=== PATIENT | female | born 1970 | race Caucasian/White ===

== ENCOUNTER 2017-10-14 16:26 | Emergency (ER) | payer OTHER, SELFPAY ==
[2017-10-14] VITALS (14 sets, daily range): BP systolic 105–133; BP diastolic 79–110; PULSE 84–191; RESP 12–22; TEMP 36.5; O2SAT 98–100; BMI 29.5
--- NOTE | 2017-10-14 16:47 | DI.RAD.S_ITS ---
PROCEDURE: XR CHEST 1V INDICATIONS: SOB< new onset/new discovered Afib TECHNIQUE: One view of the chest was acquired. COMPARISON: None. FINDINGS: Surgical changes and devices: None. Lungs and pleura: No pleural effusions or pneumothorax. Lungs are clear. Bilaterally symmetric nipple shadows Mediastinum: Mediastinal contours appear normal. Heart size is normal. Bones and chest wall: No suspicious bony lesions. Overlying soft tissues appear unremarkable. IMPRESSION: No acute disease. Dictated by: Genaro Szymanski M.D. on 10/14/2017 at 17:14 Approved by: Genaro Szymanski M.D. on 10/14/2017 at 17:16
[2017-10-14 16:57] LABS: Add Manual Diff / Slide Review NO; Basophils Percent Auto 0.4 % (0-2); Eosinophils Percent Auto 1.7 % (2-4); Hematocrit 42.7 % (36-46); Hemoglobin 14.6 g/dL (12.0-16.0); Lymphocytes Percent Auto 22.4 % (25-40); Mean Corpuscular HGB Conc 34.2 % (30-36); Mean Corpuscular Hemoglobin 29.8 PG (26-34); Monocytes Percent Auto 9.4 % (3-14); Neutrophils Absolute Auto 6600 /uL (3000-5900); Neutrophils Percent Auto 66.1 % (50-75); Platelet Count 262 X10^3/uL (150-400); Red Blood Cell Count 4.91 X10^6/uL (4.0-5.2); Red Cell Distribution Width 13.3 % (11.6-14.8)
[2017-10-14] MEDS: dilTIAZem 25 MG/5 ML SDV 10 MG IV (17:05)
[2017-10-14 17:08] LABS: BUN Creatinine Ratio 25.7 (6-22); Blood Urea Nitrogen 18 mg/dL (7-17); Calcium 9.2 mg/dL (8.4-10.2); Carbon Dioxide 26 mmol/L (22-32); Chloride 106 mmol/L (98-107); Creatine Kinase 41 U/L (30-135); Estimated Glomerular Filt Rate > 60.0 mL/min (>60); Glucose 100 mg/dL (70-100); HEMOLYSIS < 15 (0-50); Magnesium 2.1 mg/dL (1.6-2.3); Potassium 3.7 mmol/L (3.4-5.1); Sodium 144 mmol/L (137-145)
[2017-10-14] MEDS: SODIUM CHLORIDE 0.9% 1,000 ML 150 ML IV (17:11)
--- NOTE | 2017-10-14 17:14 | ED.ARRPALP ---
HPI - Arrhythmia/Palpitations General Chief Complaint: Arrhythmia/Palpitations Stated Complaint: states heart beat is irregular Time Seen by Provider: 10/14/17 16:47 Source: patient Mode of arrival: ambulatory Limitations: no limitations History of Present Illness HPI narrative: Patient presents to the ER with palpitations since 1145. She denies chest pain or dizziness, weakness or lightheadedness. She is not short of breath. She denies any history of the same. She is under tremendous stress at home due to her being evaluated for liver transplant. She admittedly is not sleeping consuming more caffeine than normal. MD complaint: rapid heart beat, heart racing, skipped beats and palpitations Related Data Previous Rx's Medication Instructions Recorded ondansetron HCl 4 - 8 mg PO Q8HP #20 01/19/12 apixaban [Eliquis] 5 mg PO BID 21 Days #42 tab 10/14/17 lorazepam [Ativan] 1 mg PO Q8H PRN #7 tab 10/15/17 Allergies Allergy/AdvReac Type Severity Reaction Status Date / Time No Known Drug Allergies Allergy Verified 10/14/17 23:10 Review of Systems Review of Systems All systems reviewed & are unremarkable except as noted in HPI and below Constitutional Denies chills, Denies fever(s), Denies lethargy and Denies weakness Eyes Denies change in vision, Denies eye discharge, Denies irritation and Denies loss of vision ENT Ears, Nose, Mouth, and Throat: Denies change in voice, Denies neck pain and Denies sore throat Cardiovascular Denies chest pain, Reports irregular heart rhythm, Denies lightheadedness, Denies palpitations, Denies dyspnea, Denies dyspnea on exertion and Denies orthopnea Respiratory Denies cough, Denies dyspnea, Denies dyspnea on exertion and Denies wheezing Gastrointestinal Gastrointestinal: Denies abdominal pain, Denies change in bowel habits, Denies diarrhea, Denies nausea and Denies vomiting Genitourinary Denies hematuria, Denies flank pain, Denies urinary incontinence and Denies urinary urgency Musculoskeletal Denies neck pain Integumentary/Breasts Denies pruritus, Denies erythema, Denies rash and Denies wounds Neurologic Denies confusion, Denies loss of vision and Denies weakness Psychiatric Denies anxiety, Denies confusion, Denies depression, Denies homicidal ideation and Denies suicidal ideation Endocrine Denies palpitations Hematologic/Lymphatic Denies easy bruising Allergic/Immunologic Denies wheezing PFSH Social History Smoking Status: Never smoker Exam Narrative Exam Narrative: Pleasant 47-year-old female in no obvious distress Initial Vital Signs Initial Vital Signs: Vital Signs Temperature 97.7 F 10/14/17 16:32 Pulse Rate 84 10/14/17 16:32 Respiratory Rate 16 10/14/17 16:32 Blood Pressure 133/90 H 10/14/17 16:32 Pulse Oximetry 100 10/14/17 16:32 Const General: cooperative and well developed Nutritional Appearance: well nourished Orientation: alert, awake, oriented x3 and not confused HENMT Head: normocephalic and atraumatic Ears: external ears normal and TM's normal bilaterally Nose: external nose normal and No nasal discharge Face and sinus: sinuses nontender, face symmetric, no sinus tenderness and No dry mucous membranes Mouth: oral mucosae normal and moist mucous membranes Teeth and gingiva: dentition normal Throat: tonsils normal and uvula midline Neck Neck: normal visual inspection, trachea midline, No lymphadenopathy, No midline deformity and No JVD Lymphatic: No lymphedema Resp Effort & Inspection: normal respiratory effort, able to speak in complete sentences, no respiratory distress and no use of accessory muscles Auscultation: clear to auscultation bilaterally, no rales, no rhonchi and no wheezes Cardio Rate: tachycardic Rhythm: abnormal rhythm Heart Sounds: no click, no gallops, no murmurs and no rubs Pulses: normal peripheral pulses GI Inspection: non-distended Palpation: soft, no hepatosplenomegaly, No guarding, No pulsatile mass and No tender Auscultation: normal bowel sounds Back/Spine/Pelvis Back: No CVA tenderness Cervical Spine: cervical ROM normal and No pain with cervical ROM Thoracic/Lumbar Spine: thoracic and lumbar spine normal to inspection Neuro General: alert, oriented x3, gait normal and no focal motor deficits Speech: speech normal Procedures Procedural Sedation Indication: cardioversion ASA Class: I Mallampati Airway Classification: Class I Time of Last PO Intake: 12:16 Preparation: cardiac catheterization technician applied, pulse oximeter, capnometry used, supplemental O2 applied, suction/airway equipment at bedside and IV secured IV Propofol dose (mg): 70 Time of Sedation (Min): 10 ED Sedation Level: Moderate (Concious) Patient Tolerated Procedure: Well Complications: none Additional Comments: Electrical Cardioversion: Indication: [] A time-out was completed verifying correct patient, procedure and site. Informed consent was obtained. The patient was judged to be a satisfactory for the procedure. An intravenous access was established. Monitoring equipment was set-up. The resuscitative cart was nearby. Anesthesia: The patient was given an intravenous dose of [propofol 70 mg IVP] After satisfactory anesthesia was achieved, the procedure was performed. The paddles were placed in the standard position. Synchronized, direct current electrical cardioversion was performed with [150joules]. The patient tolerated the procedure well. There were no complications. Post Procedure: Successful cardioversion [was achieved.] Post procedure cardiac monitoring demonstrated [normal sinus rhythm]. Course Orders Ordered: Discontinued Medications Diltiazem HCl (Cardizem) 10 mg IV NOW ONE Stop: 10/14/17 17:14 Last Admin: 10/14/17 17:05 Dose: 10 mg Enoxaparin Sodium (Lovenox) 40 mg SUBCUT NOW ONE Stop: 10/14/17 18:20 Last Admin: 10/14/17 18:05 Dose: 40 mg Sodium Chloride (Normal Saline 0.9%) 1,000 mls @ 150 mls/hr IV CONT PK Last Infusion: 10/14/17 19:03 Dose: 150 mls/hr Admin: 10/14/17 17:11 Dose: 150 mls/hr Propofol (Diprivan) 70 mg IV NOW ONE Stop: 10/14/17 17:56 Last Admin: 10/14/17 17:55 Dose: 70 mg Vital Signs - 8 hr 10/14/17 16:32 10/14/17 17:00 10/14/17 17:05 Temperature 97.7 F Pulse Rate 84 185 H 191 H Respiratory Rate 16 20 Blood Pressure 133/90 H 126/101 H Blood Pressure [Left Arm] 126/101 H Pulse Oximetry 100 100 10/14/17 17:10 10/14/17 17:30 10/14/17 17:45 Temperature Pulse Rate 128 H 143 H 133 H Respiratory Rate 20 20 22 Blood Pressure Blood Pressure [Left Arm] 122/83 H 123/88 H 131/100 H Pulse Oximetry 100 100 100 10/14/17 17:52 10/14/17 17:55 10/14/17 17:57 Temperature Pulse Rate 145 H 138 H 95 H Respiratory Rate 18 18 18 Blood Pressure Blood Pressure [Left Arm] 128/110 H 119/81 H 105/79 Pulse Oximetry 98 100 100 10/14/17 18:00 10/14/17 18:05 Temperature Pulse Rate 93 H 96 H Respiratory Rate 18 18 Blood Pressure Blood Pressure [Left Arm] 112/79 113/90 H Pulse Oximetry 100 100 MDM - Arrhythmia/Palpitations Differential Diagnosis Differential diagnosis: Likely palpitations, anxiety, sinus tachycardia, artial fibrillation, artial flutter, ventricular premature beats, supraventricular tachycardia and ventricular tachycardia Medical Records Attestation: I reviewed the patient's medical records. Lab Data Attestation: I reviewed the patient's lab results. Result diagrams: 10/14/17 16:50 10/14/17 16:50 Lab Results 10/14/17 10/14/17 10/14/17 Range/Units 16:50 16:50 16:50 WBC 10.0 (4.5-11.0) X10^3/uL RBC 4.91 (4.0-5.2) X10^6/uL Hgb 14.6 (12.0-16.0) g/dL Hct 42.7 (36-46) % MCV 87.0 (80-100) fL MCH 29.8 (26-34) PG MCHC 34.2 (30-36) % RDW 13.3 (11.6-14.8) % Plt Count 262 (150-400) X10^3/uL Neut % (Auto) 66.1 (50-75) % Lymph % (Auto) 22.4 L (25-40) % Patrick % (Auto) 9.4 (3-14) % Eos % (Auto) 1.7 L (2-4) % Baso % (Auto) 0.4 (0-2) % Neut # (Auto) 6600 H (2438-9340) /uL Sodium 144 (137-145) mmol/L Potassium 3.7 (3.4-5.1) mmol/L Chloride 106 (98-107) mmol/L Carbon Dioxide 26 (22-32) mmol/L BUN 18 H (7-17) mg/dL Creatinine 0.70 (0.52-1.04) mg/dL Estimated GFR > 60.0 (>60) mL/min BUN/Creatinine Ratio 25.7 H (6-22) Glucose 100 (70-100) mg/dL Calcium 9.2 (8.4-10.2) mg/dL Magnesium 2.1 (1.6-2.3) mg/dL Total Creatine Kinase 41 (30-135) U/L Troponin I < 0.012 (0.01-0.034) ng/mL TSH 0.75 (0.47-4.68) uIU/mL MDM Narrative Medical decision making narrative: Patient has new onset rapid AFib which started this morning. She is very certain her symptoms have not persisted for more than 24 hr. She is a perfect candidate for electrocardioversion. While sedated she was given Lovenox 40 mg subcu and I have written a prescription for Eliquis given her increased risk of clot given the cardiac stenting due to cardioversion Discharge Plan Departure Patient Disposition: Home, Self-Care Clinical Impression: Atrial fibrillation with rapid ventricular response Discharge Date/Time: 10/14/17 18:45 Interventions: ED Discharge Assessment Last Done: 10/14/17 19:08 Instructions: DI for Atrial Fibrillation Activity Restrictions/Additional Instructions: *You have been diagnosed with [ new onset rapid atrial fibrillation ] *What to do: *Take medications as directed *Follow up with your primary care provider in 2-3 days [and follow up with ortho, urology etc] *Return to ER if you should have any new, worsening or concerning symptoms Prescriptions: New apixaban [Eliquis] 5 mg tablet 5 mg PO BID 21 Days Qty: 42 RF: 0 No Action ondansetron HCl 4 MG tablet 4 - 8 mg PO Q8HP Qty: 20 RF: 0 lorazepam [Ativan] 1 mg tablet 1 mg PO Q8H PRN (Reason: anxiety) Qty: 7 RF: 0
[2017-10-14 17:27] LABS: Troponin I < 0.012 ng/mL (0.01-0.034)
[2017-10-14 17:39] LABS: Thyroid Stimulating Hormone 0.75 uIU/mL (0.47-4.68)
[2017-10-14] MEDS: PROPOFOL 200 MG/20 ML VIAL 70 MG IV (17:55)
[2017-10-14] MEDS: ENOXAPARIN 40 MG/0.4 ML SYRINGE SUBCUT (18:05)
== END 2017-10-14 18:45 | disposition home or self-care (01) ==
PROVIDERS: Emergency Provider Emergency Medicine
DX: I48.91 Unspecified atrial fibrillation (principal)
CPT/HCPCS: 36591; 71045; 80048; 82550; 82553; 83735; 84443; 84484; 85025; 92960; 93005; 93041; 94770; 96361; 96372; 96374; 99152; 99285; J1650; J2704

== ENCOUNTER 2017-10-14 22:45 | Emergency (ER) | payer OTHER, SELFPAY ==
[2017-10-14 22:56] VITALS: BP 130/72; PULSE 100; RESP 12; TEMP 36.8; O2SAT 100; BMI 29.5
--- NOTE | 2017-10-14 22:58 | ED_ITS ---
HPI - General Adult General Chief complaint: Arrhythmia/Palpitations Stated complaint: weird sensations,not sure if she is freaking out Time Seen by Provider: 10/14/17 22:46 Source: patient Mode of arrival: ambulatory Limitations: no limitations History of Present Illness HPI narrative: 47-year-old female who was seen earlier today in this emergency department and diagnosed with atrial fibrillation and cardioverted. Patient states that she left the emergency department feeling fine. She states that she went home was going about her daily activities was putting her kids to bed when she started to feel like her right arm was tingling and she started to feel palpitations and then became anxious about these symptoms. She came into the emergency department for further evaluation. Related Data Previous Rx's Medication Instructions Recorded ondansetron HCl 4 - 8 mg PO Q8HP #20 01/19/12 apixaban [Eliquis] 5 mg PO BID 21 Days #42 tab 10/14/17 lorazepam [Ativan] 1 mg PO Q8H PRN #7 tab 10/15/17 Allergies Allergy/AdvReac Type Severity Reaction Status Date / Time No Known Drug Allergies Allergy Verified 10/14/17 23:10 Review of Systems Constitutional Denies chills, Denies fever(s), Denies lethargy and Denies weakness ENT Ears, Nose, Mouth, and Throat: Denies vertigo and Denies dizziness Cardiovascular Denies chest pain, Denies syncope, Reports palpitations and Denies dyspnea Respiratory Denies cough and Denies dyspnea Gastrointestinal Gastrointestinal: Denies diarrhea, Denies nausea and Denies vomiting Musculoskeletal Reports tingling (Right arm) Integumentary/Breasts Denies pruritus, Denies erythema, Denies rash and Denies wounds Neurologic Denies confusion, Denies vertigo, Denies dizziness, Denies syncope, Reports tingling (Right arm) and Denies weakness Psychiatric Reports anxiety and Denies confusion Endocrine Reports palpitations Hematologic/Lymphatic Denies easy bruising [facility] Social History Smoking Status: Never smoker Exam Initial Vital Signs Initial Vital Signs: Vital Signs Temperature 98.2 F 10/14/17 22:56 Pulse Rate 100 H 10/14/17 22:56 Respiratory Rate 12 10/14/17 22:56 Blood Pressure 130/72 H 10/14/17 22:56 Pulse Oximetry 100 10/14/17 22:56 Const General: cooperative, healthy appearing, well developed, No acute distress and anxious Nutritional Appearance: well nourished Orientation: alert, awake, oriented x3 and not confused Resp Effort & Inspection: normal respiratory effort, able to speak in complete sentences, no respiratory distress and no use of accessory muscles Auscultation: clear to auscultation bilaterally, no rales, no rhonchi and no wheezes Cardio Rate: tachycardic Rhythm: regular rhythm Heart Sounds: no click, no gallops, no murmurs and no rubs Pulses: normal peripheral pulses Skin General: no rashes or lesions noted, No jaundice and No petechiae Neuro General: alert, oriented x3, gait normal and no focal motor deficits Speech: speech normal Extrem General: capillary refill normal Course Orders Ordered: ED Orders 10/14/17 22:48 EKG-12 Lead Stat 10/14/17 23:07 Basic Metabolic Panel Stat Complete Blood Count AUTO DIFF Stat Partial Thromboplastin Time Stat Prothrombin Time INR Stat Discontinued Medications Lorazepam (Ativan) 1 mg PO NOW ONE Stop: 10/14/17 22:59 Last Admin: 10/14/17 23:05 Dose: 1 mg Vital Signs - 8 hr 10/14/17 22:56 10/15/17 00:08 Temperature 98.2 F Pulse Rate 100 H 79 Respiratory Rate 12 11 L Blood Pressure 130/72 H Blood Pressure [Right Arm] 118/64 Pulse Oximetry 100 100 Medical Decision Making MDM Narrative Medical decision making narrative: Patient arrived to the emergency department in sinus rhythm. I considered acute CVA, mi, anxiety, electrolyte disturbance, and other conditions that may be causing her symptoms. She was given oral Ativan afterwards she reported a great improvement in all of her symptoms. We had a long discussion regarding what brought her in. Will hold on further workup for now. She does have prescriptions from her prior ER visit today. She was instructed she needed to fill those prescriptions. Will give her prescription for Ativan. I suspect that her symptoms were the result of anxiety. She does state that she has been anxious recently regarding her 's health. She was given return precautions. She expressed understanding and agreement with plan. was at bedside for the discussion Lab Data Lab results reviewed: Yes I reviewed the patient's lab results. Result diagrams: 10/14/17 23:07 10/14/17 23:07 Lab Results 10/14/17 10/14/17 10/14/17 Range/Units 23:07 23:07 23:07 WBC 10.5 (4.5-11.0) X10^3/uL RBC 4.69 (4.0-5.2) X10^6/uL Hgb 13.8 (12.0-16.0) g/dL Hct 40.7 (36-46) % MCV 86.7 (80-100) fL MCH 29.4 (26-34) PG MCHC 34.0 (30-36) % RDW 13.6 (11.6-14.8) % Plt Count 249 (150-400) X10^3/uL Neut % (Auto) 64.7 (50-75) % Lymph % (Auto) 24.0 L (25-40) % Millard % (Auto) 9.6 (3-14) % Eos % (Auto) 1.5 L (2-4) % Baso % (Auto) 0.2 (0-2) % Neut # (Auto) 6800 H (2662-5592) /uL PT 11.0 (10.1-12.7) SECONDS INR 1.0 (0.9-1.3) APTT 35 (26.4-36.2) SECONDS Sodium 141 (137-145) mmol/L Potassium 3.7 (3.4-5.1) mmol/L Chloride 107 (98-107) mmol/L Carbon Dioxide 21 L (22-32) mmol/L BUN 16 (7-17) mg/dL Creatinine 0.70 (0.52-1.04) mg/dL Estimated GFR > 60.0 (>60) mL/min BUN/Creatinine Ratio 22.9 H (6-22) Glucose 101 H (70-100) mg/dL Calcium 8.9 (8.4-10.2) mg/dL ECG Data Attestation: I personally reviewed and interpreted this ECG as follows: Prior ECG tracings: not available for review Interpretation: Time 2258 hr Sinus rhythm Ventricular rate at 80 Normal axis Normal intervals Normal QRS No ST T wave changes Discharge Plan Departure Patient Disposition: Home, Self-Care Clinical Impression: Palpitations, Anxiety Instructions: DI for Anxiety -- Adult, DI for Palpitations Activity Restrictions/Additional Instructions: Recommend that you continue all of your medications at your prescribed earlier today. Call your primary care doctor for a follow-up. Return to the emergency department for any new or worsening symptoms like we discussed. Prescriptions: New lorazepam [Ativan] 1 mg tablet 1 mg PO Q8H PRN (Reason: anxiety) Qty: 7 RF: 0 No Action ondansetron HCl 4 MG tablet 4 - 8 mg PO Q8HP Qty: 20 RF: 0 apixaban [Eliquis] 5 mg tablet 5 mg PO BID 21 Days Qty: 42 RF: 0
[2017-10-14] MEDS: LORazepam 1 MG TABLET PO (23:05)
--- NOTE | 2017-10-14 23:06 | PC.NURSE ---
Attempted to place PIV in L AC. Unsuccessful. Was able to obtain blood specimens. Second RN to attempt placement of PIV.
--- NOTE | 2017-10-14 23:12 | PC.NURSE ---
Addendum entered by Ariana Hardin R.N. 10/14/17 23:13: Numbness and tinging in R arm and R side of jaw. Dr Lux has assessed pt. Original Note: Numbness and tingling in arms and jaw.
[2017-10-14 23:18] LABS: Add Manual Diff / Slide Review NO; Basophils Percent Auto 0.2 % (0-2); Eosinophils Percent Auto 1.5 % (2-4); Hematocrit 40.7 % (36-46); Hemoglobin 13.8 g/dL (12.0-16.0); Mean Corpuscular Hemoglobin 29.4 PG (26-34); Mean Corpuscular Volume 86.7 fL (80-100); Monocytes Percent Auto 9.6 % (3-14); Neutrophils Absolute Auto 6800 /uL (3000-5900); Neutrophils Percent Auto 64.7 % (50-75); Platelet Count 249 X10^3/uL (150-400); Red Blood Cell Count 4.69 X10^6/uL (4.0-5.2); Red Cell Distribution Width 13.6 % (11.6-14.8); White Blood Cell Count 10.5 X10^3/uL (4.5-11.0)
[2017-10-14 23:21] LABS: PTT Partial Thromboplastin Tim 35 SECONDS (26.4-36.2)
[2017-10-14 23:29] LABS: BUN Creatinine Ratio 22.9 (6-22); Blood Urea Nitrogen 16 mg/dL (7-17); Calcium 8.9 mg/dL (8.4-10.2); Carbon Dioxide 21 mmol/L (22-32); Chloride 107 mmol/L (98-107); Estimated Glomerular Filt Rate > 60.0 mL/min (>60); Glucose 101 mg/dL (70-100); HEMOLYSIS 16 (0-50); Potassium 3.7 mmol/L (3.4-5.1); Sodium 141 mmol/L (137-145)
[2017-10-15 00:08] VITALS: BP 118/64; PULSE 79; RESP 11; O2SAT 100
== END 2017-10-15 00:29 | disposition home or self-care (01) ==
PROVIDERS: Emergency Provider Emergency Medicine
DX: R00.2 Palpitations (principal); F41.9 Anxiety disorder, unspecified
CPT/HCPCS: 80048; 85025; 85610; 85730; 93005; 99283; 99284; 99291

== ENCOUNTER 2017-12-25 20:24 | Emergency (ER) | payer OTHER, SELFPAY ==
[2017-12-25 20:34] VITALS: BP 143/85; PULSE 100; RESP 16; O2SAT 100; BMI 30.4
--- NOTE | 2017-12-25 20:52 | DI.RAD.S_ITS ---
PROCEDURE: XR CHEST 1V INDICATIONS: chest pain TECHNIQUE: One view of the chest was acquired. COMPARISON: [facility], CR, XR CHEST 1V, 10/14/2017, 16:53. FINDINGS: Surgical changes and devices: None. Lungs and pleura: No pleural effusions or pneumothorax. Lungs are clear. Mediastinum: Mediastinal contours appear normal. Heart size is normal. Bones and chest wall: No suspicious bony lesions. Overlying soft tissues appear unremarkable. IMPRESSION: No acute cardiopulmonary disease. Dictated by: Nehemiah Juarez M.D. on 12/25/2017 at 21:09 Approved by: Nehemiah Juarez M.D. on 12/25/2017 at 21:10
[2017-12-25 20:59] LABS: Add Manual Diff / Slide Review NO; Basophils Percent Auto 0.2 % (0-2); Eosinophils Percent Auto 2.5 % (2-4); Lymphocytes Percent Auto 22.7 % (25-40); Mean Corpuscular HGB Conc 33.4 % (30-36); Mean Corpuscular Hemoglobin 29.5 PG (26-34); Mean Corpuscular Volume 88.1 fL (80-100); Monocytes Percent Auto 7.3 % (3-14); Neutrophils Absolute Auto 7000 /uL (3000-5900); Neutrophils Percent Auto 67.3 % (50-75); Platelet Count 280 X10^3/uL (150-400); Red Blood Cell Count 4.77 X10^6/uL (4.0-5.2); Red Cell Distribution Width 13.7 % (11.6-14.8); White Blood Cell Count 10.4 X10^3/uL (4.5-11.0)
[2017-12-25] MEDS: SODIUM CHLORIDE 0.9% 1,000 ML 150 ML IV (20:59)
[2017-12-25] MEDS: ASPIRIN 81 MG TAB 324 MG PO (20:59)
[2017-12-25 21:03] LABS: Alanine Aminotransferase 26 IU/L (9-52); Albumin 4.4 g/dL (3.5-5.0); Albumin Globulin Ratio 1.3 (1.0-2.8); Alkaline Phosphatase 60 U/L (38-126); Aspartate Aminotransferase 28 IU/L (14-36); Bilirubin Total 0.3 mg/dL (0.2-1.3); Blood Urea Nitrogen 16 mg/dL (7-17); Calcium 9.2 mg/dL (8.4-10.2); Carbon Dioxide 27 mmol/L (22-32); Chloride 104 mmol/L (98-107); Creatine Kinase 33 U/L (30-135); Estimated Glomerular Filt Rate > 60.0 mL/min (>60); Globulin 3.3 g/dL (1.7-4.1); Glucose 101 mg/dL (70-100); HEMOLYSIS < 15 (0-50); Lipase 203 U/L (23-300); Potassium 3.8 mmol/L (3.4-5.1); Sodium 143 mmol/L (137-145); Total Protein 7.7 g/dL (6.3-8.2)
[2017-12-25 21:16] LABS: Troponin I < 0.012 ng/mL (0.01-0.034)
[2017-12-25 22:00] VITALS: BP 142/89; PULSE 80; RESP 14; O2SAT 100
[2017-12-25 22:55] VITALS: BP 122/63; PULSE 88; RESP 11; O2SAT 100
[2017-12-26 00:16] LABS: Troponin I < 0.012 ng/mL (0.01-0.034)
--- NOTE | 2017-12-26 00:19 | ED_ITS ---
HPI - Chest Pain General Chief Complaint: Chest Pain Stated Complaint: CHEST PAIN Time Seen by Provider: 12/25/17 20:26 Source: patient Mode of arrival: ambulatory Limitations: no limitations History of Present Illness HPI narrative: 47-year-old female presents with a chief complaint of sharp and stabbing anterior chest pain that started about 2-3 hours prior to her arrival. She was walking when her pain started but she denies any provocation, palliation or radiation of her discomfort. She denies associated symptoms such as dizziness, weakness or lightheadedness. Her pain is worse with a big deep breath. She denies any cough nor fever or chills. She has had no nausea or vomiting. 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 She had been on anticoagulation for 1 month and had a normal echocardiogram. MD complaint: chest pain Duration: constant Pain location: left chest Severity: mild Quality: sharp Pain radiation: none Relieving factors: nothing Exacerbating factors: nothing Treatments prior to arrival chest pain: none Related Data Previous Rx's Medication Instructions Recorded ondansetron HCl 4 - 8 mg PO Q8HP #20 01/19/12 lorazepam [Ativan] 1 mg PO Q8H PRN #7 tab 10/15/17 Allergies Allergy/AdvReac Type Severity Reaction Status Date / Time No Known Drug Allergies Allergy Verified 10/14/17 23:10 Review of Systems Review of Systems All systems reviewed & are unremarkable except as noted in HPI and below Constitutional Denies chills, Denies fever(s), Denies lethargy and Denies weakness Eyes Denies change in vision, Denies eye discharge, Denies irritation and Denies loss of vision ENT Ears, Nose, Mouth, and Throat: Denies change in voice, Denies neck pain and Denies sore throat Cardiovascular Reports chest pain, Denies irregular heart rhythm, Denies lightheadedness, Denies palpitations, Denies dyspnea, Denies dyspnea on exertion and Denies orthopnea Respiratory Denies cough, Denies dyspnea, Denies dyspnea on exertion and Denies wheezing Gastrointestinal Gastrointestinal: Denies abdominal pain, Denies change in bowel habits, Denies diarrhea, Denies nausea and Denies vomiting Genitourinary Denies hematuria, Denies flank pain, Denies urinary incontinence and Denies urinary urgency Musculoskeletal Denies neck pain Integumentary/Breasts Denies pruritus, Denies erythema, Denies rash and Denies wounds Neurologic Denies confusion, Denies loss of vision and Denies weakness Psychiatric Denies anxiety, Denies confusion, Denies depression, Denies homicidal ideation and Denies suicidal ideation Endocrine Denies palpitations Hematologic/Lymphatic Denies easy bruising Allergic/Immunologic Denies wheezing COUNT INCLUDES THE [facility] Social History Smoking Status: Never smoker Exam Initial Vital Signs Initial Vital Signs: Vital Signs Pulse Rate 100 H 12/25/17 20:34 Respiratory Rate 16 12/25/17 20:34 Blood Pressure 143/85 H 12/25/17 20:34 Pulse Oximetry 100 12/25/17 20:34 Const General: cooperative and well developed Nutritional Appearance: well nourished Orientation: alert, awake, oriented x3 and not confused HENMT Head: normocephalic and atraumatic Ears: external ears normal and TM's normal bilaterally Nose: external nose normal and No nasal discharge Face and sinus: sinuses nontender, face symmetric, no sinus tenderness and No dry mucous membranes Mouth: oral mucosae normal and moist mucous membranes Teeth and gingiva: dentition normal Throat: tonsils normal and uvula midline Eyes General: appearance normal, both eyes and all related structures Eyelids: eyelids normal Conjunctivae: conjunctivae normal Sclera: sclerae normal Pupils: PERRL EOM: EOM intact bilaterally Neck Neck: normal visual inspection, trachea midline, No lymphadenopathy, No midline deformity and No JVD Lymphatic: No lymphedema Chest Chest: localized rib tenderness with anteroposterior compression Resp Effort & Inspection: normal respiratory effort, able to speak in complete sentences, no respiratory distress and no use of accessory muscles Auscultation: clear to auscultation bilaterally, no rales, no rhonchi and no wheezes Cardio Rate: regular rate Rhythm: regular rhythm Heart Sounds: no click, no gallops, no murmurs and no rubs Pulses: normal peripheral pulses GI Inspection: non-distended Palpation: soft, no hepatosplenomegaly, No guarding, No pulsatile mass and No tender Auscultation: normal bowel sounds Back/Spine/Pelvis Back: No CVA tenderness Cervical Spine: cervical ROM normal and No pain with cervical ROM Thoracic/Lumbar Spine: thoracic and lumbar spine normal to inspection Skin General: no rashes or lesions noted, No jaundice and No petechiae Neuro General: alert, oriented x3, gait normal and no focal motor deficits Speech: speech normal Extrem General: full ROM, no clubbing, cyanosis or edema, no pedal edema and no calf tenderness Psych Appearance: well kempt Mental Status: mental status grossly normal Attitude: cooperative Thought Content: normal and suicidality Judgment: judgment good Course Orders Ordered: Discontinued Medications Aspirin (Aspirin Chew) 324 mg PO NOW ONE Stop: 12/25/17 20:53 Last Admin: 12/25/17 20:59 Dose: 324 mg Sodium Chloride (Normal Saline 0.9%) 1,000 mls @ 150 mls/hr IV CONT PK Last Infusion: 12/26/17 01:17 Dose: 0 mls/hr Admin: 12/25/17 20:59 Dose: 150 mls/hr Vital Signs - 8 hr 12/25/17 20:34 12/25/17 22:00 12/25/17 22:55 Pulse Rate 100 H 80 88 Respiratory Rate 16 14 11 L Blood Pressure 143/85 H Blood Pressure [Right Arm] 142/89 H 122/63 H Pulse Oximetry 100 100 100 MDM - Chest Pain Lab Data Result diagrams: 12/25/17 20:40 12/25/17 20:40 Lab Results 12/25/17 12/25/17 12/25/17 Range/Units 20:40 20:40 23:43 WBC 10.4 (4.5-11.0) X10^3/uL RBC 4.77 (4.0-5.2) X10^6/uL Hgb 14.0 (12.0-16.0) g/dL Hct 42.0 (36-46) % MCV 88.1 (80-100) fL MCH 29.5 (26-34) PG MCHC 33.4 (30-36) % RDW 13.7 (11.6-14.8) % Plt Count 280 (150-400) X10^3/uL Neut % (Auto) 67.3 (50-75) % Lymph % (Auto) 22.7 L (25-40) % [place] % (Auto) 7.3 (3-14) % Eos % (Auto) 2.5 (2-4) % Baso % (Auto) 0.2 (0-2) % Neut # (Auto) 7000 H (3272-4048) /uL Sodium 143 (137-145) mmol/L Potassium 3.8 (3.4-5.1) mmol/L Chloride 104 (98-107) mmol/L Carbon Dioxide 27 (22-32) mmol/L BUN 16 (7-17) mg/dL Creatinine 0.80 (0.52-1.04) mg/dL Estimated GFR > 60.0 (>60) mL/min BUN/Creatinine Ratio 20.0 (6-22) Glucose 101 H (70-100) mg/dL Calcium 9.2 (8.4-10.2) mg/dL Total Bilirubin 0.3 (0.2-1.3) mg/dL AST 28 (14-36) IU/L ALT 26 (9-52) IU/L Alkaline Phosphatase 60 (38-126) U/L Total Creatine Kinase 33 (30-135) U/L CK-MB (CK-2) TNP Troponin I < 0.012 < 0.012 (0.01-0.034) ng/mL Total Protein 7.7 (6.3-8.2) g/dL Albumin 4.4 (3.5-5.0) g/dL Globulin 3.3 (1.7-4.1) g/dL Albumin/Globulin Ratio 1.3 (1.0-2.8) Lipase 203 (23-300) U/L Discharge Plan Departure Patient Disposition: Home Clinical Impression: Atypical chest pain Discharge Date/Time: 12/26/17 01:19 Interventions: ED Discharge Assessment Last Done: 12/26/17 01:17 Instructions: DI for Atypical Chest Pain Activity Restrictions/Additional Instructions: *You have been diagnosed with [ atypical chest pain ] *What to do: *Take medications as directed *Follow up with your primary care provider in 2-3 days, call for an appointment. Let them know you were seen in the Emergency Department and that we ask that you be seen in follow up *Return to ER if you should have any new, worsening or concerning symptoms , such as [ ] Prescriptions: No Action ondansetron HCl 4 MG tablet 4 - 8 mg PO Q8HP Qty: 20 RF: 0 lorazepam [Ativan] 1 mg tablet 1 mg PO Q8H PRN (Reason: anxiety) Qty: 7 RF: 0
[2017-12-26 01:17] VITALS: BP 122/77; PULSE 72; RESP 19; TEMP 36.6; O2SAT 100
== END 2017-12-26 01:19 | disposition home or self-care (01) ==
PROVIDERS: Emergency Provider Emergency Medicine; Family Provider Family Medicine; PCP Family Medicine
DX: R07.89 Other chest pain (principal)
CPT/HCPCS: 36415; 36591; 71045; 80053; 82550; 82553; 83690; 84484; 85025; 93005; 93010; 93041; 96360; 96361; 99283; 99285

== ENCOUNTER 2021-04-28 12:57 | Emergency (ER) | payer OTHER, SELFPAY ==
[2021-04-28 13:06] VITALS: BP 134/78; PULSE 84; RESP 16; TEMP 36.7; O2SAT 100; BMI 27.3
--- NOTE | 2021-04-28 13:10 | DI.RAD.S_ITS ---
PROCEDURE: XR WRIST RT MIN 3V INDICATIONS: fall injury TECHNIQUE: 4 views of the wrist were acquired. COMPARISON: None. FINDINGS: Bones: Impacted distal radius fracture with mild dorsal angulation. There is mild displacement of the fracture fragments. No dislocations. Ulnar styloid fracture with mild displacement. No suspicious bony lesions. Scaphoid view: Intact. Soft tissues: No suspicious soft tissue calcifications. IMPRESSION: Impacted distal radius fracture. Ulnar styloid fracture. Dictated by: Barrington Castaneda M.D. on 04/28/2021 at 13:29 Approved by: Barrington Castaneda M.D. on 04/28/2021 at 13:31
--- NOTE | 2021-04-28 13:29 | ED_ITS ---
HPI - Extremity Injury (Upper) <Minh Mack PA-C - Last Filed: 04/28/21 19:27> General Chief Complaint: Extremity Injury, Upper Stated Complaint: slipped and fell right arm and wrist hurt Time Seen by Provider: 04/28/21 13:02 Source: patient Mode of arrival: Ambulatory History of Present Illness HPI narrative: Is patient is a 51-year-old female presenting to the emergency department today for evaluation of a right wrist injury. Patient states that she was walking backwards while falling a wheelbarrow when she slipped and fell backward. She states that she put her right outer arm to catch her fall, noting that she landed awkwardly and immediately felt pain upon following. Of note, patient states that she did not hit her head or lose consciousness as a result of the fall. Additionally, she denies pain or injury elsewhere other than the right rest. Patient denies fever, chills, cough, chest pain, shortness of breath, nausea, vomiting, diarrhea, abdominal pain, dysuria, hematuria, or numbness and tingling the bilateral upper extremities. No other concerns are voiced at this time. Related Data Previous Rx's Medication Instructions Recorded ondansetron HCl 4 mg tablet 4 - 8 mg PO Q8HP #20 01/19/12 lorazepam 1 mg tablet (Ativan) 1 mg PO Q8H PRN #7 tab 10/15/17 oxycodone 5 mg tablet 5 mg PO BID PRN #12 tab 04/28/21 Allergies Allergy/AdvReac Type Severity Reaction Status Date / Time No Known Drug Allergies Allergy Verified 04/28/21 13:09 Review of Systems <Minh Mack PA-C - Last Filed: 04/28/21 19:27> Constitutional Constitutional: Denies chills, Denies fatigue, Denies fever(s), Denies frequent falls, Denies lethargy and Denies weakness Eyes Eyes: Denies loss of vision ENT Ears, Nose, Mouth, and Throat: Denies dizziness and Denies neck pain Cardiovascular Cardiovascular: Denies chest pain, Denies irregular heart rhythm, Denies lightheadedness, Denies palpitations, Denies dyspnea, Denies dyspnea on exertion and Denies orthopnea Respiratory Respiratory: Denies cough, Denies dyspnea, Denies dyspnea on exertion and Denies wheezing Gastrointestinal Gastrointestinal: Denies abdominal pain, Denies change in bowel habits, Denies diarrhea, Denies nausea and Denies vomiting Genitourinary Genitourinary: Denies hematuria, Denies flank pain, Denies urinary incontinence and Denies urinary urgency Musculoskeletal Musculoskeletal: Denies back pain, Reports arthralgias (Right wrist), Reports joint swelling (Right wrist), Denies muscle weakness, Denies neck pain, Denies numbness and Denies tingling Integumentary/Breasts Skin/Breast: Denies pruritus, Denies erythema, Denies rash and Denies wounds Neurologic Neurologic: Denies behavioral changes, Denies confusion, Denies dizziness, Denies frequent falls, Denies loss of vision, Denies numbness, Denies tingling and Denies weakness Psychiatric Psychiatric: Denies behavioral changes and Denies confusion Endocrine Endocrine: Denies fatigue and Denies palpitations Allergic/Immunologic Allergic/Immunologic: Denies wheezing Patient History <Minh Mack PA-C - Last Filed: 04/28/21 19:27> Social History Smoking Status: Never smoker Smoking Status: Never smoker alcohol intake frequency: holidays/special occasions only Substance Use Type: does not use Exam <Minh Mack PA-C - Last Filed: 04/28/21 19:27> Narrative Exam Narrative: GENERAL: 51 year old patient appears stated age. Well-developed patient, in mild distress. HEAD: Atraumatic. Normocephalic. EYES: Pupils equal round and reactive. Extraocular motions intact. No scleral icterus. No injection or drainage. ENT: Nose without bleeding, purulent drainage. Throat without erythema, tonsillar hypertrophy or exudate. Airway patent. NECK: Trachea midline. Non tender CARDIOVASCULAR: Regular rate and rhythm without murmurs, gallops, or rubs. RESPIRATORY: Clear to auscultation. Breath sounds equal bilaterally. No wheezes, rales, or rhonchi. GASTROINTESTINAL: Abdomen soft, non-tender, nondistended. EXTREMITIES: No edema. Swelling appreciated over the dorsal aspect of the right wrist with tenderness to palpation appreciated over the medial and lateral aspects of the wrist. Gross motor function intact throughout the bilateral upper extremities. Good sensation light touch appreciated throughout the bilateral upper extremities. BACK: Nontender without deformity or crepitance. No flank tenderness. NEURO: AOx3. SKIN: No rash or erythema of visible areas Initial Vital Signs Initial Vital Signs: Vital Signs Temperature 98.1 F 04/28/21 13:06 Pulse Rate 84 04/28/21 13:06 Respiratory Rate 16 04/28/21 13:06 Blood Pressure 134/78 04/28/21 13:06 Pulse Oximetry 100 04/28/21 13:06 Cardio Pulses: radial pulses present bilaterally <Richie Manuel DO - Last Filed: 04/30/21 13:29> Initial Vital Signs Initial Vital Signs: Vital Signs Temperature 98.1 F 04/28/21 13:06 Pulse Rate 84 04/28/21 13:06 Respiratory Rate 16 04/28/21 13:06 Blood Pressure 134/78 04/28/21 13:06 Pulse Oximetry 100 04/28/21 13:06 Course <Minh Mack PA-C - Last Filed: 04/28/21 19:27> Course Course Narrative: Right wrist x-ray obtained. Orders Ordered: Discontinued Medications Oxycodone HCl (Oxycodone Ir 5 Mg Tablet) 5 mg PO NOW ONE Stop: 04/28/21 14:28 Last Admin: 04/28/21 14:33 Dose: 5 mg Documented by: MAURICIO Consultations Consultation #1: Consult with Dr. Paz (orthopedic surgery). Recommends having the patient put in a splint and follow-up with his office for further evaluation. Time: 13:50 Vital Signs Vital signs: Vital Signs - 8 hr 04/28/21 13:06 04/28/21 15:15 Temperature 98.1 F Pulse Rate 84 88 Respiratory Rate 16 16 Blood Pressure 134/78 147/87 H Pulse Oximetry 100 98 <Richie Manuel DO - Last Filed: 04/30/21 13:29> Orders Ordered: Discontinued Medications Oxycodone HCl (Oxycodone Ir 5 Mg Tablet) 5 mg PO NOW ONE Stop: 04/28/21 14:28 Last Admin: 04/28/21 14:33 Dose: 5 mg Documented by: ATAHALINAOR Vital Signs Vital signs: Vital Signs - 8 hr 04/28/21 13:06 04/28/21 15:15 Temperature 98.1 F Pulse Rate 84 88 Respiratory Rate 16 16 Blood Pressure 134/78 147/87 H Pulse Oximetry 100 98 MDM - Extremity Injury (Upper) <Minh Mack PA-C - Last Filed: 04/28/21 19:27> Imaging Data Extremity x-ray #1: Radiologist's Impression: PROCEDURE:? XR WRIST RT MIN 3V ? INDICATIONS: fall injury ? TECHNIQUE:? 4 views of the wrist were acquired.? ? COMPARISON:? None. ? FINDINGS:? ? Bones:? Impacted distal radius fracture with mild dorsal angulation.? There is mild displacement of the fracture fragments.? No dislocations.? Ulnar styloid fracture with mild displacement.? No suspicious bony lesions.? ? Scaphoid view:? Intact. ? Soft tissues:? No suspicious soft tissue calcifications.? ? IMPRESSION:? Impacted distal radius fracture. Ulnar styloid fracture. ? ? Dictated by: Barrington Castaneda M.D. on 04/28/2021 at 13:29 ? ? Approved by: Barrington Castaneda M.D. on 04/28/2021 at 13:31 ? [facility] Narrative Medical decision making narrative: To consider fracture versus dislocation versus sprain versus strain. Overall physical examination, history, and imaging are reassuring. Discussed results of x-ray with patient and informed her that orthopedic surgery would follow-up with her for further evaluation. Additionally, discussed with the patient the importance of placing her in a splint prior to discharge. Patient agrees to plan. Strict return precautions were discussed with the patient prior to discharge. Discharge Plan Departure Patient Disposition: Home Clinical Impression: Closed fracture of right distal radius, Fracture of right ulnar styloid Instructions: DI for Distal Radius Fracture Activity Restrictions/Additional Instructions: *You have been diagnosed with right distal radius fracture, right ulnar styloid fracture *What to do: *Please continue to take your regular medications as directed. [ ] New medication prescriptions sent to your pharmacy: [ ] [X] New medication written as a paper prescription: Oxycodone [ ] No new medications given *Please follow up with your primary care provider in 2-3 days, call for an appointment. Let them know you were seen in the Emergency Department and that we ask that you be seen in follow up. We will electronically transmit a record of today's note if your PCP is in our system. *Please follow-up with [facility] for the earliest available appointment. Office can be reached at . *If you do not have a primary care provider please contact the [facility] Resource line at [phone]. They will ask some questions about your medical history and help get you set up with a doctor in the community. *Return to Emergency Department if you should have any new, worsening or concerning symptoms, such as [fever greater than 101 F, shaking chills, worsening pain, persistent vomiting or other bothersome symptoms] Prescriptions: New oxycodone 5 mg tablet 5 mg PO BID PRN (Reason: pain) Qty: 12 0RF No Action ondansetron HCl 4 MG tablet 4 - 8 mg PO Q8HP Qty: 20 0RF lorazepam [Ativan] 1 mg tablet 1 mg PO Q8H PRN (Reason: anxiety) Qty: 7 0RF Referrals: Jordy Paz MD [Physician] - Joseph Dhaliwal MD [Primary Care Provider] - <Richie Maunel DO - Last Filed: 04/30/21 13:29> Cosign ED Attending Edwardoature Attestation: I was immediately available in the department for consultation. This doc umentation has been reviewed and I agree with assessment and plan. Supervised by Richie Manuel DO
[2021-04-28] MEDS: OXYCODONE IR 5 MG TABLET PO (14:33)
[2021-04-28 15:15] VITALS: BP 147/87; PULSE 88; RESP 16; O2SAT 98
== END 2021-04-28 15:16 | disposition home or self-care (01) ==
PROVIDERS: Emergency Provider Physician Assistant; Family Provider Family Medicine; PCP Family Medicine
DX: S52.501A Unspecified fracture of the lower end of right radius, initial encounter for closed fracture (principal); S52.611A Displaced fracture of right ulna styloid process, initial encounter for closed fracture; W01.0XXA Fall on same level from slipping, tripping and stumbling without subsequent striking against object, initial encounter
CPT/HCPCS: 73110; 99283; 99284

== ENCOUNTER 2021-05-04 08:57 | Day surgery (SDC) | payer OTHER, SELFPAY ==
[2021-05-04] VITALS (10 sets, daily range): BP systolic 131–148; BP diastolic 81–96; PULSE 89–106; RESP 8–17; TEMP 36.7–36.9; O2SAT 95–97; BMI 28.0
[2021-05-04 10:38] LABS: COVID19 -Nasal RAPID Negative (Negative)
--- NOTE | 2021-05-04 10:47 | PM.PREOP ---
Pre-operative Note COVID-19 COVID-19 status: Negative Result date/Date tested (Pos, Neg/Pending): 05/04/21 Interval Note History & Physical reviewed/Exam performed by Physician: Yes Changes to H&P: No
[2021-05-04] MEDS: CEFAZOLIN 2 GM/20 ML SYRINGE IV (11:40)
--- NOTE | 2021-05-04 11:53 | SUR.OPER ---
Supine on padded OR bed, head on pillow, arms secured on padded arm boards at <90 degrees abduction, legs uncrossed, safety belt at thigh, tape over blanket over lower legs.
[2021-05-04] MEDS: BUPIVACAINE 0.5% (PF) VIAL 30 ML INJ (12:17)
[2021-05-04] MEDS: HYDROMORPHONE 2 MG INJ IV ×3 (13:01→13:19)
--- NOTE | 2021-05-04 13:01 | PM.OP.1 ---
Operative Date/Time/Diagnoses Date of procedure: 05/04/21 Time of procedure: 13:01 Pre-op diagnosis: Right closed, angulated, extra-articular distal radius fracture Post-op diagnosis: same Procedure & Clinicians Procedure: Open reduction, internal fixation of right distal radius fracture with volar plate Same procedure as scheduled: Yes Indications: The patient is a 51-year-old [id number] woman who slipped and fell sustaining the above-noted fracture. She agreed to open reduction internal fixation after discussion the risks benefits alternatives as documented in my history and physical note. Surgeon: Jordy Paz Click Yes if Unassisted: Yes Anesthesia Type: General and Local Operative Notes Findings: Angulated extra-articular distal radius fracture on the right. Closure Type: primary Specimen(s): none sent Prosthetic devices, grafts, tissues, transplants, or devices: Implants used in this procedure were manufactured by the [employer] and included a DVR anatomic wrist plate with a short right plate, three 16 mm pegs and two 18 mm pegs, one 2.5 mm x 18 mm screw, two 3.5 x 14 mm screws and one 3.5 x 12 mm screw. Applied: implant(s) Estimated Blood Loss (mL): 10 Blood products transfused: none Tourniquet time (min): 39 Procedure in detail: The patient was seen in the preoperative area where she identified her right wrist as the operative site. Her hand on this side was marked with my initials. She was taken to the operating room and placed on the operating room table in a supine position where she underwent the induction of a general anesthetic. Following the onset of general anesthesia, a tourniquet was placed about the proximal right arm and her preoperative splint was removed. She received preoperative antibiotics and a agricultural commodities grader-out was performed. The arm was prepared from the fingertips to the tourniquet with ChloraPrep in the usual fashion and draped through sterile drapes. The arm was elevated and exsanguinated with an Esmarch bandage and the tourniquet inflated to 250 mmHg. An approximately 6 cm incision was made overlying the tendon of the flexor carpi radialis. This was angled slightly at the distal end to avoid crossing the wrist crease at a right angle. The tendon of the flexor carpi radialis was identified and the tendon sheath opened. The tendon was retracted to the ulnar side and the base of the tendon sheath was opened to access the deep space of the distal forearm. The pronator quadratus was identified and released from the radial side of the radius. This was reflected towards the ulnar side. A self retaining retractor was placed to protect the neurovascular and tendon structures to the ulnar side. The fracture was identified and reduced and this was viewed on fluoroscopy in the AP and lateral views. A short plate was applied to the volar side of the radius and positioned with the screw in the slot of the plate. Initially I had placed the hole to distally so a 2nd hole was drilled more proximally to allow the plate to be positioned correctly. A K-wire was then placed through the distal K-wire hole to confirm there would be no intra-articular penetration of the screws and pegs. Initially a partially-threaded screw was placed into the radial styloid to help reduce the fracture to the plate. An additional 5 smooth pegs were placed to support the subchondral bone of the distal radius. An additional 2 screws were then placed through the proximal portion of the plate to complete fixation to the radial shaft. The position of the hardware and the fracture was confirmed as satisfactory in the AP and lateral views of fluoroscopy. The wound was copiously irrigated with sterile saline solution. The pronator was allowed to fall back over the plate. The tourniquet was deflated for total tourniquet time of 39 minutes. Hemostasis was obtained with electrocautery. The subcutaneous layer was closed with interrupted 3-0 Vicryl and the skin with a running 4-0 Monocryl. This subcutaneous tissues were injected with 4 mL 0.5% plain Marcaine for postoperative pain control. Steri-Strips were applied followed by 4x4s, sterile cast padding and a volar wrist splint. Patient was then transported to the recovery room in good condition having tolerated procedure well. Complications: none Post-operative Condition: stable Disposition: PACU Plan for aftercare: The patient will be discharged today. At her 1st follow-up provided radiographs confirm no loss of reduction she will be placed into a Velcro removable splint and allowed to begin gentle range of motion of her wrist. She has been provided with prescriptions for oxycodone and Vistaril for pain control.
[2021-05-04] MEDS: hydrOXYzine 50 MG/ML INJ 25 MG IM (13:05)
[2021-05-04] MEDS: OXYCODONE IR 5 MG TABLET PO ×2 (13:25→13:50)
[2021-05-04] MEDS: LORazepam 2 MG/ML INJ 0.25 MG IV (13:26)
== END 2021-05-04 15:00 | disposition home or self-care (01) ==
PROVIDERS: Family Provider Family Medicine; PCP Family Medicine; Referring Provider Orthopaedic Surgery; Visit Provider Orthopaedic Surgery
PROC: (CPT 25607; principal; 2021-05-04 10:45)
DX: S52.531A Colles' fracture of right radius, initial encounter for closed fracture (principal); W01.0XXA Fall on same level from slipping, tripping and stumbling without subsequent striking against object, initial encounter; F32.9 Major depressive disorder, single episode, unspecified; Z20.822 Contact with and (suspected) exposure to COVID-19
CPT/HCPCS: 25607; 87635; J0690; J1100; J1170; J2060; J2250; J2405; J2704; J3010; J3410